=== PATIENT | male | born 1990 | race African-American/Black ===

== ENCOUNTER 2018-07-22 01:02 | Emergency (ER) | payer SELFPAY ==
[2018-07-22] MEDS ORDERED: KETOROLAC 30 MG/ML INJ ONE (01:54)
[2018-07-22 02:06] LABS: Absolute Lymphocytes (CBC) 2.2 K/uL (0.7-4.9); Absolute Monocytes 0.5 K/uL (0.1-1.3); Absolute Neutrophil 1.9 K/uL (1.8-8.0); Basophils % 0.9 % (0-1.3); Eosinophils % 7.6 % (0-4.4); Lymphocytes % 43.7 % (15.3-44.8); MPV 8.4 fL (7.6-11.3); Monocytes % 10.4 % (3.3-12.3); RBC Red Blood Cell Count 5.28 M/uL (4.33-5.43)
[2018-07-22 02:27] LABS: ALT/SGPT 33 U/L (12-78); AST/SGOT 22 U/L (15-37); Albumin 4.5 g/dL (3.4-5.0); Alkaline Phosphatase 72 U/L (45-117); BUN Blood Urea Nitrogen 10 mg/dL (7-18); Bicarbonate 24 mmol/L (21-32); Bilirubin Direct 0.1 mg/dL (0-0.2); Bilirubin Total 0.4 mg/dL (0.2-1.0); Glucose Level 101 mg/dL (74-106); Magnesium 2.1 mg/dL (1.8-2.4); Potassium 4.1 mmol/L (3.5-5.1); Protein, Total 8.1 g/dL (6.4-8.2); Sodium Level 140 mmol/L (136-145); Troponin I < 0.02 ng/mL (0.0-0.045)
[2018-07-22 02:50] LABS: NT PRO-BNP < 5 pg/mL (<125)
--- NOTE | 2018-07-22 03:06 | EDPHYS ---
Physician Documentation [facility] Name: Paul Giles Jr Age: 28 yrs Sex: Male : 1990 Arrival Date: 07/22/2018 Time: 01:05 Bed 5 Private MD: ED Physician Cordell Robbins HPI: 07/22 01:26 This 28 yrs old Black Male presents to ER via Ambulatory with complaints of chest pain. cp 01:26 The patient or guardian reports chest pain that is located primarily in the anterior cp chest wall, left, left lower lateral chest. 01:26 Associated signs and symptoms: Pertinent positives: cough. Duration: The patient or cp guardian reports a single episode, that is still ongoing, and worsening. Modifying factors: the symptoms are aggravated by cough, deep breath. Historical: - Allergies: 01:22 mosquitoes; bb - Home Meds: 01:22 Albuterol Inhl [Active]; bb - PMHx: 01:22 Asthma; bb - PSHx: 01:22 None; bb - Immunization history:: Adult Immunizations up to date. - Social history:: Smoking status: Patient uses tobacco products, smokes one pack cigarettes per day. Patient uses alcohol, on a daily basis. street drugs, marijuana. - Ebola Screening: : No symptoms or risks identified at this time. ROS: 01:30 Constitutional: Negative for body aches, chills, fever, poor PO intake. cp 01:30 Eyes: Negative for injury, pain, redness, and discharge. cp 01:30 Cardiovascular: Positive for chest pain, of the left lower lateral and anterior rib cp area, Negative for edema, palpitations. 01:30 Neck: Negative for pain with movement, pain at rest, stiffness, tenderness. cp 01:30 Respiratory: Positive for cough, Negative for shortness of breath, wheezing. 01:30 Abdomen/GI: Negative for abdominal pain, nausea, vomiting, and diarrhea. 01:30 Back: Negative for pain at rest, pain with movement, radiated pain. 01:30 : Negative for urinary symptoms. 01:30 Skin: Negative for cellulitis, rash. 01:30 Neuro: Negative for altered mental status, dizziness, headache, syncope, near syncope, weakness. 01:30 All other systems are negative. Exam: 01:35 Constitutional: The patient appears in no acute distress, alert, awake, cp non-diaphoretic, non-toxic, well developed, well nourished, uncomfortable. 01:35 Head/Face: Normocephalic, atraumatic. cp 01:35 Eyes: Periorbital structures: appear normal, Pupils: equal, round, and reactive to cp light and accomodation, Extraocular movements: intact throughout, Conjunctiva: normal, no exudate, no injection, Sclera: no appreciated abnormality, Lids and lashes: appear normal, bilaterally. 01:35 ENT: External ear(s): are unremarkable, Ear canal(s): are normal, clear, TM's: bulging, is not appreciated, bilaterally, dullness, bilaterally, erythema, is not appreciated, bilaterally, Nose: is normal, Mouth: Lips: moist, Oral mucosa: pink and intact, moist, Posterior pharynx: Airway: no evidence of obstruction, patent, Tonsils: are normal in appearance, swelling, is not appreciated, erythema, is not appreciated, exudate, is not appreciated, Voice: is normal. 01:35 Neck: ROM/movement: is normal, is supple, without pain, no range of motions limitations, no nuchal rigidity. 01:35 Chest/axilla: Inspection: normal, Palpation: crepitus, is not appreciated, tenderness, cp that is moderate, of the left lower lateral and anterior rib area, that partially reproduces the patient's complaints. 01:35 Cardiovascular: Rate: normal, Rhythm: regular, Pulses: Pulses are 2+ in right radial artery and left radial artery. Heart sounds: murmur, not appreciated, Edema: is not appreciated, JVD: is not appreciated. 01:35 Respiratory: the patient does not display signs of respiratory distress, Respirations: normal, no use of accessory muscles, no retractions, no splinting, no tachypnea, labored breathing, is not present, Breath sounds: are clear throughout, no decreased breath sounds, no stridor, no wheezing, decreased breath sounds, are not appreciated, stridor, is not appreciated, wheezing: is not appreciated. 01:35 Abdomen/GI: Inspection: abdomen appears normal, Bowel sounds: active, all quadrants, Palpation: abdomen is soft and non-tender, in all quadrants, rebound tenderness, is not appreciated, voluntary guarding, is not appreciated, involuntary guarding, is not appreciated. 01:35 Back: pain, is absent, ROM is normal, CVA tenderness, is absent, muscle spasm, is not present. 01:35 Musculoskeletal/extremity: Exam is negative for decreased range of motion, deformity, edema, injury. 01:35 Skin: cellulitis, is not appreciated, no rash present. 01:35 Neuro: Orientation: to person, place \T\ time. Mentation: is normal, Cerebellar function: is grossly normal, Motor: moves all fours, strength is normal, Sensation: is normal, Gait: is steady. 01:39 ECG was reviewed by the Attending Physician. cp Vital Signs: 01:22 BP 125 / 85; Pulse 99; Resp 16 S; Temp 99(O); Pulse Ox 97% on R/A; Weight 97.52 kg (R); bb Height 6 ft. 1 in. (185.42 cm) (R); Pain 7/10; 02:46 Pulse 100; Resp 19 S; Pulse Ox 98% on R/A; jd3 03:19 BP 116 / 91; Pulse 82; Resp 18 S; Pulse Ox 96% on R/A; jd3 01:22 Body Mass Index 28.37 (97.52 kg, 185.42 cm) bb MDM: 01:09 Patient medically screened. cp 02:00 Differential diagnosis: abnormal EKG, acute pericarditis, chest wall pain, cp cholecystitis, Cholelithiasis costochondritis, pericarditis, pneumonia, pneumothorax, pulmonary embolus. 03:05 Data reviewed: vital signs, nurses notes, lab test result(s), EKG, radiologic studies, cp plain films. 03:05 Test interpretation: by ED physician or midlevel provider: ECG, plain radiologic cp studies. 03:05 Response to treatment: the patient's symptoms have mildly improved after treatment. cp 03:05 Counseling: I had a detailed discussion with the patient and/or guardian regarding: the cp historical points, exam findings, and any diagnostic results supporting the discharge/admit diagnosis, lab results, radiology results, to return to the emergency department if symptoms worsen or persist or if there are any questions or concerns that arise at home. Special discussion: Based on the patient's history, exam, and Dx evaluation, there is no indication for emergent intervention or inpatient Tx. It is understood by the patient/guardian that if the Sx's persist or worsen they need to return immediately for re-evaluation. 02 02:02 Order name: Basic Metabolic Panel; Complete Time: 02:54 EDMS 02 02:54 Interpretation: Normal except: CL 108. cp 07/22 02:02 Order name: Liver (Hepatic) Function; Complete Time: 02:54 EDMS 02 02:54 Interpretation: Normal except: GLOB 3.6. cp 07/22 02:03 Order name: Troponin I; Complete Time: 02:54 EDMS 07/22 02:54 Interpretation: Reviewed. cp 02 02:03 Order name: NT PRO-BNP; Complete Time: 02:54 EDMS 07/22 02:03 Order name: Magnesium; Complete Time: 02:54 EDMS 07/22 01:26 Order name: EKG; Complete Time: 07:04 cp 07/22 01:26 Order name: Cardiac monitoring; Complete Time: 01:41 cp 07/22 01:26 Order name: EKG - Nurse/Tech; Complete Time: 01:41 cp 07/22 01:26 Order name: IV Saline Lock; Complete Time: 01:56 cp 07/22 01:26 Order name: Labs collected and sent; Complete Time: 01:56 cp 07/22 01:26 Order name: O2 Per Protocol; Complete Time: 01:27 cp 07/22 01:31 Order name: Chest Pa And Lat (2 Views) EDMS 07/22 02:03 Order name: CBC with Automated Diff EDMS 07/22 03:03 Interpretation: Normal except: SRIKANTH% 37.4; EOSINOPHIL % 7.6. cp 07/22 02:03 Order name: Protime (+INR); Complete Time: 02:54 EDMS 07/22 02:03 Order name: Influenza Screen (A ; Complete Time: 02:54 EDMS 07/22 02:54 Interpretation: Reviewed. cp 07/22 02:03 Order name: Group A Streptococcus Rapid Sc; Complete Time: 02:54 EDMS 07/22 02:54 Interpretation: Reviewed. cp 07/22 02:12 Order name: Manual Differential EDMS 07/22 02:46 Order name: Throat Culture EDMS 07/22 01:26 Order name: O2 Sat Monitoring; Complete Time: 01:27 cp EC:39 Rate is 90 beats/min. Rhythm is regular. WV interval is normal. QRS interval is normal. cp QT interval is normal. T waves are Inverted in leads III, V2. Interpreted by me. Reviewed by me. Administered Medications: 01:56 Drug: TORadol 30 mg Route: IVP; Site: right antecubital; jd3 03:20 Follow up: Response: No adverse reaction jd3 03:17 Drug: Hydrocodone-Acetaminophen (7.5 mg-325 mg) 1 tabs Route: PO; jd3 03:18 Follow up: Response: Medication administered at discharge. jd3 Disposition: 06:33 Co-signature as Attending Physician, Cordell Robbins MD. rn Disposition: 07/22/18 03:06 Discharged to Home. Impression: Acute upper respiratory infection, unspecified, Other chest pain. - Condition is Stable. - Discharge Instructions: Nonspecific Chest Pain, Upper Respiratory Infection, Adult. - Prescriptions for Naprosyn 500 mg Oral Tablet - take 1 tablet by ORAL route 2 times per day take with food; 20 tablet. Tramadol 50 mg Oral Tablet - take 1 tablet by ORAL route every 8 hours as needed; 12 tablet. Zithromax Z- Ok 250 mg Oral Tablet - take 1 tablet by ORAL route as directed for 5 days Day 1 - take two (2) tablets one time. Day 2, 3, 4 , 5 take one (1) tablet once daily.; 6 tablet. Albuterol Sulfate 90 mcg/actuation - inhale 1-2 puff by INHALATION route every 4-6 hours; 1 Inhaler. - Medication Reconciliation Form, Thank You Letter, Antibiotic Education, Prescription Opioid Use form. - Follow up: Private Physician; When: 2 - 3 days; Reason: Worsening of condition. - Problem is new. - Symptoms have improved. Signatures: Dispatcher [employer] Aimee Holloway RN RN Cordell Park MD MD rn Page, Corey, PA PA cp Davies, Jonathon, RN RN jd3 Corrections: (The following items were deleted from the chart) 03:20 03:06 07/22/2018 03:06 Discharged to Home. Impression: Acute upper respiratory jd3 infection, unspecified; Other chest pain. Condition is Stable. Forms are Medication Reconciliation Form, Thank You Letter, Antibiotic Education, Prescription Opioid Use. Follow up: Private Physician; When: 2 - 3 days; Reason: Worsening of condition. Problem is new. Symptoms have improved. cp
--- NOTE | 2018-07-22 03:06 | ER ---
Nurse's Notes [facility] Name: Paul Giles Jr Age: 28 yrs Sex: Male : 1990 Arrival Date: 07/22/2018 Time: 01:05 Bed 5 Private MD: Diagnosis: Acute upper respiratory infection, unspecified;Other chest pain Presentation: 07/22 01:20 Presenting complaint: Patient states: he is having a left upper quadrant pain x 5 days bb pain was constant for the first couple of days then decreased but now has worsened again and is constant aggravated by coughing pt denies diarrhea, fever, vomited x 1 4 days ago. Pt is unable to lay down due to the pain. Transition of care: patient was not received from another setting of care. Onset of symptoms was July 17, 2018. Risk Assessment: Do you want to hurt yourself or someone else? Patient reports no desire to harm self or others. Initial Sepsis Screen: Does the patient meet any 2 criteria? No. Patient's initial sepsis screen is negative. Does the patient have a suspected source of infection? No. Patient's initial sepsis screen is negative. Care prior to arrival: None. 01:20 Method Of Arrival: Ambulatory bb 01:20 Acuity: DOMONIQUE 3 bb Historical: - Allergies: 01:22 mosquitoes; bb - Home Meds: 01:22 Albuterol Inhl [Active]; bb - PMHx: 01:22 Asthma; bb - PSHx: 01:22 None; bb - Immunization history:: Adult Immunizations up to date. - Social history:: Smoking status: Patient uses tobacco products, smokes one pack cigarettes per day. Patient uses alcohol, on a daily basis. street drugs, marijuana. - Ebola Screening: : No symptoms or risks identified at this time. Screenin:23 Abuse screen: Denies threats or abuse. Nutritional screening: No deficits noted. jd3 Tuberculosis screening: No symptoms or risk factors identified. Fall Risk Ambulatory Aid- None/Bed Rest/Nurse Assist (0 pts). Gait- Normal/Bed Rest/Wheelchair (0 pts) Mental Status- Oriented to own ability (0 pts). Total Sheehan Fall Scale indicates No Risk (0-24 pts). Assessment: 01:20 General: Appears in no apparent distress. uncomfortable, Behavior is calm, cooperative, jd3 appropriate for age. Pain: Complains of pain in chest Quality of pain is described as aching. Neuro: Level of Consciousness is awake, alert, obeys commands, Oriented to person, place, time, situation, Appropriate for age. Cardiovascular: Heart tones S1 S2 present Capillary refill < 3 seconds Patient's skin is warm and dry. Respiratory: Airway is patent Respiratory effort is even, unlabored, Respiratory pattern is regular, symmetrical, Breath sounds with wheezes bilaterally. GI: No signs and/or symptoms were reported involving the gastrointestinal system. : No signs and/or symptoms were reported regarding the genitourinary system. EENT: No signs and/or symptoms were reported regarding the EENT system. Derm: Skin is intact, Skin is dry, Skin is normal, Skin temperature is warm. Musculoskeletal: Circulation, motion, and sensation intact. Range of motion: intact in all extremities. 02:46 Reassessment: Patient appears in no apparent distress at this time. Patient and/or jd3 family updated on plan of care and expected duration. Pain level reassessed. Patient is alert, oriented x 3, equal unlabored respirations, skin warm/dry/pink. 03:19 Reassessment: Patient appears in no apparent distress at this time. Patient and/or jd3 family updated on plan of care and expected duration. Pain level reassessed. Patient is alert, oriented x 3, equal unlabored respirations, skin warm/dry/pink. Vital Signs: 01:22 BP 125 / 85; Pulse 99; Resp 16 S; Temp 99(O); Pulse Ox 97% on R/A; Weight 97.52 kg (R); bb Height 6 ft. 1 in. (185.42 cm) (R); Pain 7/10; 02:46 Pulse 100; Resp 19 S; Pulse Ox 98% on R/A; jd3 03:19 BP 116 / 91; Pulse 82; Resp 18 S; Pulse Ox 96% on R/A; jd3 01:22 Body Mass Index 28.37 (97.52 kg, 185.42 cm) ED Course: 01:05 Patient arrived in ED. ag3 01:06 Theodore Torres PA is PHCP. cp 01:06 Cordell Robbins MD is Attending Physician. cp 01:20 Beto Naqvi RN is Primary Nurse. jd3 01:22 Triage completed. bb 01:22 Patient has correct armband on for positive identification. Bed in low position. Call jd3 light in reach. Side rails up X 1. Adult w/ patient. 01:22 Arm band placed on. jd3 01:40 Inserted saline lock: 20 gauge in right antecubital area, using aseptic technique. jd3 Blood collected. 01:42 Patient moved to radiology via wheelchair. kw 01:43 X-ray completed. Patient tolerated procedure well. kw 01:43 Patient moved back from radiology. kw 01:46 Chest Pa And Lat (2 Views) In Process Unspecified. EDMS 03:17 No provider procedures requiring assistance completed. IV discontinued, intact, jd3 bleeding controlled, No redness/swelling at site. Pressure dressing applied. Administered Medications: 01:56 Drug: TORadol 30 mg Route: IVP; Site: right antecubital; jd3 03:20 Follow up: Response: No adverse reaction jd3 03:17 Drug: Hydrocodone-Acetaminophen (7.5 mg-325 mg) 1 tabs Route: PO; jd3 03:18 Follow up: Response: Medication administered at discharge. jd3 Outcome: 03:06 Discharge ordered by . cp 03:18 Discharged to home ambulatory, with family. jd3 03:18 Condition: stable 03:18 Discharge instructions given to patient, family, Instructed on discharge instructions, follow up and referral plans. medication usage, Demonstrated understanding of instructions, follow-up care, medications, Prescriptions given X 4. 03:20 Patient left the ED. jd3 Signatures: Dispatcher [employer] EDMS Aimee Díaz RN RN bb Whitley, Kimberlee kw Page, Corey, PA PA cp Davies, Jonathon RN RN Celine Meier ag3
[2018-07-22] MEDS ORDERED: HYDROCODONE/APAP 7.5/325 MG TAB ONE (03:19)
[2018-07-22 03:32] VITALS: TEMP 99
[2018-07-22 03:33] LABS: Blood Morphology Comment NOT SEEN (NOT SEEN); Platelet Estimate ADEQ
[2018-07-22 03:34] VITALS: BP 116/91; O2SAT 96
--- NOTE | 2018-07-22 08:18 | RAD REPORT ---
EXAM DESCRIPTION: RAD - Chest Pa And Lat (2 Views) - 07/22/2018 1:45 am CLINICAL HISTORY: COUGH, CHEST PAIN Chest pain. COMPARISON: Chest Pa And Lat (2 Views) dated 06/15/2017 FINDINGS: The lungs are clear. The heart is normal in size. No displaced fractures. IMPRESSION: No acute or concerning finding suspected.
--- NOTE | 2018-07-22 08:43 | EKG ---
Test Date: 2018-07-22 Test Time: 01:32:58 Head Bone Grinder: [place] MEASUREMENT RESULTS: Intervals: Rate: 90 CO: 152 QRSD: 96 QT: 358 QTc: 437 Knobel: P: 55 CO: 152 QRS: 83 T: 22 INTERPRETIVE STATEMENTS: Normal sinus rhythm Septal infarct, age undetermined Abnormal ECG Compared to ECG 07/03/2012 10:33:23 Myocardial infarct finding now present Electronically Signed On 07-22-18 08:43:16 RESIDENTIAL APPLIANCE REPAIR TECHNICIAN by Serafin Lainez
== END 2018-07-22 03:20 | disposition home or self-care (01) ==
LOC: ER 01:02
DX: J06.9 Acute upper respiratory infection, unspecified (principal); F17.210 Nicotine dependence, cigarettes, uncomplicated; J45.909 Unspecified asthma, uncomplicated; Z91.038 Other insect allergy status
CPT/HCPCS: 36415; 71046; 80048; 80076; 83735; 83880; 84484; 85025; 85610; 87070; 87081; 87804; 93005; 96374; 99284

== ENCOUNTER 2019-03-14 06:04 | Emergency (ER) | payer SELFPAY ==
[2019-03-14] MEDS ORDERED: LEVALBUTEROL 1.25 MG/3 ML NEB ONE (06:36)
[2019-03-14] MEDS ORDERED: METHYLPREDNISOLONE 125 MG INJ ONE (06:36)
[2019-03-14 07:38] LABS: Absolute Lymphocytes (CBC) 1.1 K/uL (0.7-4.9); Basophils % 0.4 % (0-1.3); Hematocrit 41.8 % (39.6-49.0); Lymphocytes % 13.8 % (15.3-44.8); MPV 8.9 fL (7.6-11.3); RBC Red Blood Cell Count 4.56 M/uL (4.33-5.43)
[2019-03-14 07:39] LABS: Protime INR 0.94
[2019-03-14 07:44] LABS: ALT/SGPT 44 U/L (12-78); AST/SGOT 27 U/L (15-37); Albumin 4.2 g/dL (3.4-5.0); Alkaline Phosphatase 70 U/L (45-117); BUN Blood Urea Nitrogen 9 mg/dL (7-18); Bicarbonate 25 mmol/L (21-32); Bilirubin Direct 0.2 mg/dL (0-0.2); Bilirubin Total 0.7 mg/dL (0.2-1.0); Glucose Level 105 mg/dL (74-106); Magnesium 1.9 mg/dL (1.8-2.4); NT PRO-BNP 17 pg/mL (<125); Potassium 4.2 mmol/L (3.5-5.1); Protein, Total 7.7 g/dL (6.4-8.2); Sodium Level 137 mmol/L (136-145); Troponin (Emerg Dept Use Only) < 0.02 ng/mL (0.0-0.045)
--- NOTE | 2019-03-14 08:34 | RAD REPORT ---
EXAM DESCRIPTION: RAD - Chest Single View - 03/14/2019 6:55 am CLINICAL HISTORY: Substernal chest pain COMPARISON: July 22 TECHNIQUE: AP portable chest image was obtained . FINDINGS: Lungs are clear. Heart and vasculature are normal. No measurable pleural effusion and no p neumothorax. No acute bony abnormality seen. No acute aortic findings suspected. IMPRESSION: No acute cardiopulmonary process.
[2019-03-14] MEDS ORDERED: KETOROLAC 30 MG/ML INJ ONE (09:45)
--- NOTE | 2019-03-14 10:34 | ECHO ---
HEIGHT: 6 ft 0 in WEIGHT: 190 lb oz DATE OF STUDY: 03/14/[address]: ALBERTA LANDRY 2-DIMENSIONAL: YES M.MODE: YES DOPPLER: YES COLOR FLOW: YES TDS: NO PORTABLE: NO DEFINITY: NO BUBBLE STUDY: NO DIAGNOSIS: PERICARDITIS, CHEST PAIN CARDIAC HISTORY: CATHERIZATION: NO SURGERY: NO PROSTHETIC VALVE: NO PACEMAKER: NO MEASUREMENTS (cm) DIASTOLIC (NORMALS) SYSTOLIC (NORMALS) IVSd 1.0 (0.6-1.2) LA Diam 3.2 (1.9-4.0) LVEF 80% LVIDd 3.7 (3.5-5.7) LVIDs 2.0 (2.0-3.5) %FS 47% LVPWd 1.0 (0.6-1.2) Ao Diam 3.5 (2.0-3.7) 2 DIMENSIONAL ASSESSMENT: RIGHT ATRIUM: NORMAL LEFT ATRIUM: NORMAL RIGHT VENTRICLE: NORMAL LEFT VENTRICLE: NORMAL TRICUSPID VALVE: NORMAL MITRAL VALVE: NORMAL PULMONIC VALVE: NORMAL AORTIC VALVE: NORMAL PERICARDIAL EFFUSION: NONE AORTIC ROOT: NORMAL LEFT VENTRICULAR WALL MOTION: NORMAL DOPPLER/COLOR FLOW: NORMAL COMMENTS: NORMAL 2D ECHOCARDIOGRAM WITH DOPPLER. TECHNOLOGIST: Manjula REINOSO
--- NOTE | 2019-03-14 10:38 | ER ---
Nurse's Notes [facility] Name: Paul Giles Jr Age: 28 yrs Sex: Male : 1990 Arrival Date: 03/14/2019 Time: 06:05 Bed 13 Private MD: Diagnosis: Chest pain, unspecified;Pericarditis in diseases classified elsewhere Presentation: 03/14 06:25 Presenting complaint: Patient states: "Chest pain since 0H last night while I was cc3 smoking a cigarette. At 0200H I felt difficulty breathing and pain in the epigastric area that radiates to back and right shoulder". Transition of care: patient was not received from another setting of care. Onset of symptoms was March 13, 2019. Risk Assessment: Do you want to hurt yourself or someone else? Patient reports no desire to harm self or others. Initial Sepsis Screen: Does the patient meet any 2 criteria? No. Patient's initial sepsis screen is negative. Does the patient have a suspected source of infection? No. Patient's initial sepsis screen is negative. Care prior to arrival: None. 06:25 Method Of Arrival: Ambulatory cc3 06:25 Acuity: DOMONIQUE 3 cc3 Triage Assessment: 06:25 General: Appears in no apparent distress. uncomfortable, Behavior is calm, cooperative, cc3 appropriate for age. Pain: Complains of pain in chest, epigastric area. Cardiovascular: Reports chest pain, since 2130H last night. Historical: - Allergies: 06:25 mosquitoes; cc3 - Home Meds: 06:25 Albuterol Inhl [Active]; cc3 - PMHx: 06:25 Asthma; cc3 - Immunization history:: Adult Immunizations not up to date. - Social history:: Smoking status: Patient uses tobacco products, smokes one pack cigarettes per day. - Ebola Screening: : No symptoms or risks identified at this time. Screenin:25 Abuse screen: Denies threats or abuse. Denies injuries from another. Nutritional cc3 screening: No deficits noted. Tuberculosis screening: No symptoms or risk factors identified. Fall Risk Ambulatory Aid- None/Bed Rest/Nurse Assist (0 pts). Gait- Normal/Bed Rest/Wheelchair (0 pts) Mental Status- Oriented to own ability (0 pts). Assessment: 06:25 Pain: Complains of pain in chest, epigastric area Pain radiates to back and right cc3 shoulder Pain currently is 9 out of 10 on a pain scale. Quality of pain is described as aching, Pain began 2130H last night. 07:40 Reassessment: Patient appears in no apparent distress at this time. Patient and/or sv family updated on plan of care and expected duration. Pain level reassessed. Patient is alert, oriented x 3, equal unlabored respirations, skin warm/dry/pink. Pt reports that his pain is better when he leans forward. Patient states symptoms have improved. 08:17 Reassessment: Echo at the bedside. sv 09:48 Reassessment: Patient appears in no apparent distress at this time. Patient and/or sv family updated on plan of care and expected duration. Pain level reassessed. Patient is alert, oriented x 3, equal unlabored respirations, skin warm/dry/pink. Patient states symptoms have improved. 10:27 Reassessment: Patient appears in no apparent distress at this time. Patient and/or sv family updated on plan of care and expected duration. Pain level reassessed. Patient is alert, oriented x 3, equal unlabored respirations, skin warm/dry/pink. Pt waiting on Echo results. Vital Signs: 06:25 BP 126 / 91; Pulse 84; Resp 20 S; Temp 98.8(O); Pulse Ox 97% on R/A; Weight 86.18 kg cc3 (R); Height 6 ft. 0 in. (182.88 cm) (R); Pain 9/10; 07:33 BP 137 / 87; Pulse 81; Resp 22; Pulse Ox 96% ; sv 08:20 BP 133 / 93; Pulse 93; Resp 20; Pulse Ox 96% ; sv 09:11 BP 125 / 98; Pulse 69; Resp 18; Pulse Ox 95% on R/A; sv 10:13 BP 111 / 67; Pulse 83; Resp 18; Pulse Ox 95% ; sv 06:25 Body Mass Index 25.77 (86.18 kg, 182.88 cm) [facility] ED Course: 06:05 Patient arrived in ED. ag3 06:09 Jayme Patel PA is PHCP. [facility] 06:09 Alex Mulligan MD is Attending Physician. [facility] 06:25 Arm band placed on right wrist. EKG completed in triage. Results shown to MD. cc3 06:25 Patient has correct armband on for positive identification. Placed in gown. Bed in low cc3 position. Call light in reach. Side rails up X2. compliance monitor on. Pulse ox on. NIBP on. 06:25 Patient maintains SpO2 saturation greater than 95% on room air. cc3 06:56 XRAY Chest (1 view) In Process Unspecified. EDMS 06:56 Triage completed. cc3 06:58 Pily Marques RN is Primary Nurse. sv 06:59 Report received from Ilene HINES. sv 06:59 Report given to DONNY Nascimento. cc3 07:16 Basic Metabolic Panel Sent. sv 07:17 CBC with Diff Sent. sv 09:12 Awaiting radiology results. sv 09:12 Echo w/ Doppler Sent. sv 10:50 No provider procedures requiring assistance completed. IV discontinued, intact, sv bleeding controlled, No redness/swelling at site. Pressure dressing applied. Administered Medications: 06:42 Drug: Xopenex (3) 1.25 mg Route: Inhalation; cc3 07:16 Drug: SOLU-Medrol 125 mg Route: IVP; Site: right antecubital; sv 07:41 Follow up: Response: No adverse reaction sv 09:48 Drug: Ketorolac 30 mg Route: IVP; Site: right antecubital; sv 10:50 Follow up: Response: No adverse reaction sv Outcome: 10:36 Discharge ordered by MD. jennyfer 10:50 Discharged to home ambulatory, with family. sv 10:50 Condition: stable 10:50 Condition: improved 10:50 Discharge instructions given to patient, Instructed on discharge instructions, follow up and referral plans. medication usage, Demonstrated understanding of instructions, follow-up care, medications, Prescriptions given X 1. 10:51 Patient left the ED. sv Signatures: Dispatcher [employer] EDMS Pily Marques RN RN sv Mickail, Joel, PA PA jmm Cordel, Charlene cc3 Celine Mosqueda ag3 Corrections: (The following items were deleted from the chart) 07:34 07:33 BP 137 / 87; Pulse 81bpm; Pulse Ox 94%; sv sv 07:37 07:33 BP 137 / 87; Pulse 81bpm; Pulse Ox 96%; sv sv
--- NOTE | 2019-03-14 10:38 | EDPHYS ---
Physician Documentation [facility] Name: Paul Giles Jr Age: 28 yrs Sex: Male : 1990 Arrival Date: 03/14/2019 Time: 06:05 Bed 13 Private MD: ED Physician Alex Mulligan HPI: 03/14 06:22 This 28 yrs old Black Male presents to ER via Unassigned with complaints of Chest Pain. [facility] 06:22 The patient or guardian reports chest pain that is located primarily in the substernal [facility] area. The pain does not radiate. Associated signs and symptoms: Pertinent positives: shortness of breath. The chest pain is described as sharp. Duration: The patient or guardian reports a single episode, that is still ongoing, and unchanged. Modifying factors: The symptoms are alleviated by nothing. the symptoms are aggravated by deep breath. The patient has not experienced similar symptoms in the past. This is a 28 year old male with a history of asthma that presents to the ED with complaints of chest pain beginning last night at 9 pm. Worsened with deep breath. Admits to tobacco use. . Historical: - Allergies: 06:25 mosquitoes; cc3 - Home Meds: 06:25 Albuterol Inhl [Active]; cc3 - PMHx: 06:25 Asthma; cc3 - Immunization history:: Adult Immunizations not up to date. - Social history:: Smoking status: Patient uses tobacco products, smokes one pack cigarettes per day. - Ebola Screening: : No symptoms or risks identified at this time. ROS: 06:22 Constitutional: Negative for fever, chills, and weight loss. jmm 06:22 Abdomen/GI: Negative for abdominal pain, nausea, vomiting, diarrhea, and constipation. 06:22 Cardiovascular: Positive for chest pain. 06:22 Respiratory: Positive for shortness of breath. 06:22 All other systems are negative. Exam: 06:22 Constitutional: This is a well developed, well nourished patient who is awake, alert, jmm and in no acute distress. Head/Face: atraumatic. Eyes: EOMI, no conjunctival erythema appreciated ENT: Moist Mucus Membranes Neck: Trachea midline, Supple Chest/axilla: Normal chest wall appearance and motion. 06:22 Cardiovascular: Rate: normal, Rhythm: regular. 06:22 Respiratory: the patient does not display signs of respiratory distress, Respirations: normal, Breath sounds: wheezing: that is mild, is heard in the left upper lobe. 06:22 Back: ROM is normal. 06:22 Musculoskeletal/extremity: ROM: intact in all extremities. 06:22 Skin: Appearance: Color: normal in color. 06:22 Neuro: Orientation: is normal, Mentation: is normal, Memory: is normal. 06:22 Psych: Behavior/mood is pleasant, cooperative. Vital Signs: 06:25 BP 126 / 91; Pulse 84; Resp 20 S; Temp 98.8(O); Pulse Ox 97% on R/A; Weight 86.18 kg cc3 (R); Height 6 ft. 0 in. (182.88 cm) (R); Pain 9/10; 07:33 BP 137 / 87; Pulse 81; Resp 22; Pulse Ox 96% ; sv 08:20 BP 133 / 93; Pulse 93; Resp 20; Pulse Ox 96% ; sv 09:11 BP 125 / 98; Pulse 69; Resp 18; Pulse Ox 95% on R/A; sv 10:13 BP 111 / 67; Pulse 83; Resp 18; Pulse Ox 95% ; sv 06:25 Body Mass Index 25.77 (86.18 kg, 182.88 cm) cc3 MDM: 06:17 Patient medically screened. [facility] 10:34 Data reviewed: vital signs, nurses notes, lab test result(s), EKG, radiologic studies, [facility] plain films, ultrasound. Counseling: I had a detailed discussion with the patient and/or guardian regarding: the historical points, exam findings, and any diagnostic results supporting the discharge/admit diagnosis, lab results, radiology results, the need for outpatient follow up, to return to the emergency department if symptoms worsen or persist or if there are any questions or concerns that arise at home. ED course: No effusion on 2d echo. Patient recently had a viral illness. This may have caused pericarditis. Patient is advised to follow up with cardio for reevaluation. Patient was otherwise given strict return precautions. Patient understood and agrees with the plan of care. . 03/14 06:28 Order name: Basic Metabolic Panel [facility] 03/14 06:28 Order name: CBC with Diff [facility] 03/14 06:28 Order name: LFT's; Complete Time: 07:48 [facility] 03/14 06:28 Order name: Magnesium; Complete Time: 07:48 [facility] 03/14 06:28 Order name: NT PRO-BNP; Complete Time: 07:48 [facility] 03/14 06:28 Order name: PT-INR; Complete Time: 08:09 [facility] 03/14 06:28 Order name: Troponin (emerg Dept Use Only); Complete Time: 07:48 [facility] 03/14 06:28 Order name: XRAY Chest (1 view); Complete Time: 08:51 [facility] 03/14 06:28 Order name: Basic Metabolic Panel; Complete Time: 07:48 EDMS 03/14 06:28 Order name: CBC with Automated Diff; Complete Time: 07:48 EDMS 03/14 06:31 Order name: D-Dimer; Complete Time: 08:09 [facility] 03/14 07:39 Order name: Echo w/ Doppler [facility] 03/14 06:28 Order name: EKG; Complete Time: 06:29 [facility] 03/14 06:28 Order name: Cardiac monitoring; Complete Time: 06:34 [facility] 03/14 06:28 Order name: EKG - Nurse/Tech; Complete Time: 06:58 [facility] 03/14 06:28 Order name: IV Saline Lock; Complete Time: 07:16 [facility] 03/14 06:28 Order name: Labs collected and sent; Complete Time: 07:16 [facility] 03/14 06:28 Order name: O2 Per Protocol; Complete Time: 06:34 [facility] 03/14 06:28 Order name: O2 Sat Monitoring; Complete Time: 06:34 jmm Administered Medications: 06:42 Drug: Xopenex (3) 1.25 mg Route: Inhalation; cc3 07:16 Drug: SOLU-Medrol 125 mg Route: IVP; Site: right antecubital; sv 07:41 Follow up: Response: No adverse reaction sv 09:48 Drug: Ketorolac 30 mg Route: IVP; Site: right antecubital; sv 10:50 Follow up: Response: No adverse reaction sv Disposition: 03/14/19 10:36 Discharged to Home. Impression: Chest pain, unspecified, Pericarditis in diseases classified elsewhere. - Condition is Stable. - Discharge Instructions: Nonspecific Chest Pain, Pericarditis. - Prescriptions for Ibuprofen 800 mg Oral Tablet - take 1 tablet by ORAL route every 8 hours As needed take with food; 30 tablet. - Medication Reconciliation Form, Thank You Letter, Antibiotic Education, Prescription Opioid Use form. - Follow up: Private Physician; When: 2 - 3 days; Reason: Recheck today's complaints, Continuance of care, Re-evaluation by your physician. Signatures: Dispatcher [employer] Pily Be RN RN Jayme Veliz PA PA jmm Cordel, Charlene cc3 Corrections: (The following items were deleted from the chart) 10:51 10:36 03/14/2019 10:36 Discharged to Home. Impression: Chest pain, unspecified; sv Pericarditis in diseases classified elsewhere. Condition is Stable. Forms are Medication Reconciliation Form, Thank You Letter, Antibiotic Education, Prescription Opioid Use. Follow up: Private Physician; When: 2 - 3 days; Reason: Recheck today's complaints, Continuance of care, Re-evaluation by your physician. jennyfer
[2019-03-14 11:07] VITALS: TEMP 98.8
[2019-03-14 11:10] VITALS: O2SAT 95
[2019-03-14 11:11] VITALS: BP 111/67
== END 2019-03-14 10:51 | disposition home or self-care (01) ==
LOC: ER 06:04
DX: I31.9 Disease of pericardium, unspecified (principal); J45.909 Unspecified asthma, uncomplicated; F17.210 Nicotine dependence, cigarettes, uncomplicated; Z91.038 Other insect allergy status
CPT/HCPCS: 36415; 71045; 80048; 80076; 83735; 83880; 84484; 85025; 85379; 85610; 93005; 93306; 96374; 96375; 99285; J2930

== ENCOUNTER 2020-01-27 18:41 | Inpatient (IN) | payer SELFPAY ==
[2020-01-27 19:43] LABS: Absolute Lymphocytes (CBC) 0.8 K/uL (0.7-4.9); Basophils % 0.5 % (0-1.3); Hematocrit 54.3 % (39.6-49.0); Lymphocytes % 9.1 % (15.3-44.8); MPV 8.9 fL (7.6-11.3); RBC Red Blood Cell Count 6.02 M/uL (4.33-5.43)
[2020-01-27] MEDS ORDERED: NA CHLORIDE 0.9% 1,000 ML ONE ×3 (19:45→22:38)
[2020-01-27] MEDS ORDERED: ONDANSETRON 4 MG/2 ML VIAL ONE (19:45)
[2020-01-27 20:31] LABS: Potassium 5.1 mmol/L (3.5-5.1)
--- NOTE | 2020-01-27 20:51 | EDPHYS ---
Physician Documentation [facility] Name: Paul Giles Jr Age: 29 yrs Sex: Male : 1990 Arrival Date: 01/27/2020 Time: 18:42 Bed 25 Private MD: ED Physician Juan Driver HPI: 01/26 21:52 This 29 yrs old Black Male presents to ER via Ambulatory with complaints of Leg Pain, kb Vomiting. 21:52 The patient presents to the emergency department with nausea, vomiting. Onset: The kb symptoms/episode began/occurred today. Possible causes: overheated. The symptoms are aggravated by nothing. The symptoms are alleviated by nothing. Associated signs and symptoms: Pertinent positives: nausea, vomiting, muscle cramps, Pertinent negatives: abdominal pain, anorexia, belching, constipation, diarrhea, dysuria, fever, flatulence, GI bleeding, hematuria. Severity of symptoms: At their worst the symptoms were moderate in the emergency department the symptoms are unchanged. The patient has not experienced similar symptoms in the past. The patient has not recently seen a physician. Pt reports he has been working in the heat the last few days and today he started having muscle cramps all over, nausea and vomiting. Unable to tolerate anything by mouth. Historical: - Allergies: 19:15 mosquitoes; ss - Home Meds: 19:15 Albuterol Inhl [Active]; vc - PMHx: 19:15 Asthma; ss - Immunization history:: Adult Immunizations up to date. - Social history:: Smoking status: Patient reports the use of cigarette tobacco products, smokes one pack cigarettes per day. ROS: 21:52 Constitutional: Negative for fever, chills, and weight loss, Cardiovascular: Negative kb for chest pain, palpitations, and edema, Respiratory: Negative for shortness of breath, cough, wheezing, and pleuritic chest pain, Back: Negative for injury and pain, MS/Extremity: Negative for injury and deformity, Skin: Negative for injury, rash, and discoloration, Neuro: Negative for headache, weakness, numbness, tingling, and seizure. 21:52 Abdomen/GI: Positive for nausea and vomiting, abdominal cramps, Negative for abdominal pain, diarrhea, constipation. Exam: 20:06 Constitutional: This is a well developed, well nourished patient who is awake, alert, kb and in no acute distress. Head/Face: Normocephalic, atraumatic. Chest/axilla: Normal chest wall appearance and motion. Nontender with no deformity. No lesions are appreciated. Cardiovascular: Regular rate and rhythm with a normal S1 and S2. No gallops, murmurs, or rubs. Normal PMI, no JVD. No pulse deficits. Respiratory: Lungs have equal breath sounds bilaterally, clear to auscultation and percussion. No rales, rhonchi or wheezes noted. No increased work of breathing, no retractions or nasal flaring. Abdomen/GI: Soft, non-tender, with normal bowel sounds. No distension or tympany. No guarding or rebound. No evidence of tenderness throughout. Back: No spinal tenderness. No costovertebral tenderness. Full range of motion. Skin: Warm, dry with normal turgor. Normal color with no rashes, no lesions, and no evidence of cellulitis. MS/ Extremity: Pulses equal, no cyanosis. Neurovascular intact. Full, normal range of motion. Neuro: Awake and alert, GCS 15, oriented to person, place, time, and situation. Cranial nerves II-XII grossly intact. Motor strength 5/5 in all extremities. Sensory grossly intact. Cerebellar exam normal. Normal gait. 20:06 ECG was reviewed by the Attending Physician. Vital Signs: 19:12 BP 106 / 74; Pulse 90; Resp 18; Temp 97.8; Pulse Ox 99% on R/A; Pain 10/10; ss 21:00 BP 126 / 68; Pulse 96; Resp 18; Pulse Ox 100% on R/A; vc MDM: 19:15 Patient medically screened. kb 20:56 Data reviewed: vital signs, nurses notes. Data interpreted: Pulse oximetry: on room air kb is 99 %. Interpretation: normal. Counseling: I had a detailed discussion with the patient and/or guardian regarding: the historical points, exam findings, and any diagnostic results supporting the discharge/admit diagnosis, lab results, the need for further work-up and treatment in the hospital. Physician consultation: Robin MYRICK was contacted at 20:45, regarding admission, to the medical/surgical unit. patient's condition, and will see patient in ED, shortly. 01/26 19:16 Order name: CBC with Diff; Complete Time: 19:59 kb 01/26 19:16 Order name: Basic Metabolic Panel; Complete Time: 20:37 kb 01/26 19:16 Order name: CPK; Complete Time: 20:37 kb 01/27 00:02 Order name: [facility] 01/27 01:02 Order name: SARS-COV-2 RT PCR; Complete Time: 01:35 EDMS 01/26 19:16 Order name: IV Start; Complete Time: 19:33 kb 01/26 19:16 Order name: EKG; Complete Time: 19:17 kb 01/26 19:16 Order name: EKG - Nurse/Tech; Complete Time: 19:41 kb EC:06 Rate is 75 beats/min. Rhythm is regular. QRS [place] is Normal. OR interval is normal at kb 142 msec. QRS interval is normal at 90 msec. QT interval is normal at 366 msec. Administered Medications: 19:40 Drug: NS 0.9% 1000 ml Route: IV; Rate: 1000 ml; Site: right antecubital; vc 20:40 Follow up: IV Status: Completed infusion; IV Intake: 1000ml vc 19:40 Drug: Zofran (Ondansetron) 4 mg Route: IVP; Site: right antecubital; vc 21:30 Follow up: Response: No adverse reaction; Nausea is decreased vc 20:53 Drug: NS 0.9% 1000 ml Route: IV; Rate: 1000 ml; Site: right antecubital; vc 22:00 Follow up: IV Status: Completed infusion; IV Intake: 1000ml vc Disposition: 01/27/20 20:50 Hospitalization ordered by Lloyd Robbins for Observation. Preliminary diagnosis are Dehydration, Acute kidney failure. - Bed requested for Telemetry/MedSurg (Inpatient). - Status is Observation. bb - Condition is Stable. - Problem is new. - Symptoms are unchanged. Addendum: 01/29/2020 08:49 Co-signature as Attending Physician, Juan Driver MD I agree with the assessment and k dr plan of care. Signatures: Dispatcher [employer] [facility] Kiah Ahn FNP-C FNP-Ckb Webb, Martha, RN RN mw Rittger, Kevin, MD MD kdr Ballard, Brenda, RN RN bb Smirch, Shelby, RN RN Roxann Perez RN RN vc Corrections: (The following items were deleted from the chart) 01/26 21:05 20:50 Hospitalization Ordered by Lloyd Robbins MD for Observation. Preliminary mw diagnosis is Dehydration; Acute kidney failure. Bed requested for Telemetry/MedSurg (observation). Status is Observation. Condition is Stable. Problem is new. Symptoms are unchanged. kb 01/27 02:40 01/26 21:05 01/27/2020 20:50 Hospitalization Ordered by Lloyd Robbins MD for mw Observation. Preliminary diagnosis is Dehydration; Acute kidney failure. Bed requested for [facility] ER HOLD. Status is Observation. Condition is Stable. Problem is new. Symptoms are unchanged. mw 01/27 02:45 02:40 01/27/2020 20:50 Hospitalization Ordered by Lloyd Robbins MD for Observation. mw Preliminary diagnosis is Dehydration; Acute kidney failure. Bed requested for Telemetry/MedSurg (Inpatient). Status is Observation. Condition is Stable. Problem is new. Symptoms are unchanged. mw 03:14 02:45 01/27/2020 20:50 Hospitalization Ordered by Lloyd Robbins MD for Observation. bb Preliminary diagnosis is Dehydration; Acute kidney failure. Bed requested for Telemetry/MedSurg (Inpatient). Status is Observation. Condition is Stable. Problem is new. Symptoms are unchanged. mw
--- NOTE | 2020-01-27 20:51 | ER ---
Nurse's Notes [facility] Name: Paul Giles Jr Age: 29 yrs Sex: Male : 1990 Arrival Date: 01/27/2020 Time: 18:42 Bed 25 Private MD: Diagnosis: Dehydration;Acute kidney failure Presentation: 01/26 19:12 Chief complaint: Patient states: Working outside all day and now has generalized body ss cramps. Coronavirus screen: Client denies travel out of the [place] in the last 14 days. Ebola Screen: Patient denies exposure to infectious person. Patient denies travel to an Ebola-affected area in the 21 days before illness onset. Initial Sepsis Screen: Does the patient have a suspected source of infection? No. Patient's initial sepsis screen is negative. Onset of symptoms was January 27, 2020. 19:12 Method Of Arrival: Ambulatory ss 19:12 Acuity: DOMONIQUE 3 ss 20:00 Initial Sepsis Screen: Does the patient meet any 2 criteria? No. Patient's initial vc sepsis screen is negative. Initial Sepsis Screen: Does the patient have a suspected source of infection? No. Patient's initial sepsis screen is negative. Risk Assessment: Do you want to hurt yourself or someone else? Patient reports no desire to harm self or others. Triage Assessment: 19:15 General: Appears in no apparent distress. uncomfortable, Behavior is cooperative, vc appropriate for age. Pain: Complains of pain in abdomen Pain does not radiate. Pain currently is 9 out of 10 on a pain scale. GI: Reports lower abdominal pain, upper abdominal pain, cramping, nausea, vomiting. Historical: - Allergies: 19:15 mosquitoes; ss - Home Meds: 19:15 Albuterol Inhl [Active]; vc - PMHx: 19:15 Asthma; ss - Immunization history:: Adult Immunizations up to date. - Social history:: Smoking status: Patient reports the use of cigarette tobacco products, smokes one pack cigarettes per day. Screenin:15 Abuse screen: Denies threats or abuse. Nutritional screening: No deficits noted. vc Tuberculosis screening: No symptoms or risk factors identified. Fall Risk None identified. Assessment: 19:15 GI: Abdomen is non-distended. vc 19:15 General: Appears in no apparent distress. vc 19:15 General: Behavior is calm, cooperative, appropriate for age. Pain: Complains of pain in vc abdomen Pain does not radiate. Pain currently is 9 out of 10 on a pain scale. Quality of pain is described as crampy, stabbing. Neuro: Level of Consciousness is awake, obeys commands, lethargic. Cardiovascular: Capillary refill < 3 seconds Patient's skin is warm and dry. Edema. Respiratory: Airway is patent Respiratory effort is even, unlabored, Respiratory pattern is regular, symmetrical. : Reports inability to void, since the am. Derm: Skin is intact, Skin is dry, Skin temperature is warm. 20:15 Reassessment: Patient and/or family updated on plan of care and expected duration. Pain vc level reassessed. Patient states the cramping has improved but he has a headache. Provider notified. 21:15 Reassessment: Patient and/or family updated on plan of care and expected duration. Pain vc level reassessed. Patient states feeling better. Patient states symptoms have improved. 22:00 Reassessment: Please see [facility] for further charting. vc 22:00 Reassessment: Patient states he feels much better, still unable to urinate, care handed vc over to DONNY Lopez. Vital Signs: 19:12 BP 106 / 74; Pulse 90; Resp 18; Temp 97.8; Pulse Ox 99% on R/A; Pain 10/10; ss 21:00 BP 126 / 68; Pulse 96; Resp 18; Pulse Ox 100% on R/A; vc ED Course: 18:42 Patient arrived in ED. mr 19:12 Triage completed. ss 19:15 [facility]C [facility] kb 19:15 Juan Driver MD is Attending Physician. kb 19:15 Arm band placed on left wrist. ss 19:15 Patient has correct armband on for positive identification. Bed in low position. Call vc light in reach. Side rails up X2. Pulse ox on. NIBP on. 19:24 Roxann Odonnell RN is Primary Nurse. vc 19:30 Inserted saline lock: 20 gauge in right antecubital area, using aseptic technique. vc Blood collected. 20:50 Lloyd Robbins MD is Hospitalizing Provider. kb 22:00 No provider procedures requiring assistance completed. Patient admitted, IV remains in vc place. Administered Medications: 19:40 Drug: NS 0.9% 1000 ml Route: IV; Rate: 1000 ml; Site: right antecubital; vc 20:40 Follow up: IV Status: Completed infusion; IV Intake: 1000ml vc 19:40 Drug: Zofran (Ondansetron) 4 mg Route: IVP; Site: right antecubital; vc 21:30 Follow up: Response: No adverse reaction; Nausea is decreased vc 20:53 Drug: NS 0.9% 1000 ml Route: IV; Rate: 1000 ml; Site: right antecubital; vc 22:00 Follow up: IV Status: Completed infusion; IV Intake: 1000ml vc Intake: 20:40 IV: 1000ml; Total: 1000ml. vc 22:00 IV: 1000ml; Total: 2000ml. vc Outcome: 20:50 Decision to Hospitalize by Provider. kb 22:00 Admitted to ER Hold. Please see [facility] for further documentation. vc 22:00 Condition: good 22:00 Instructed on the need for admit. 01/27 03:14 Patient left the ED. bb Signatures: Kiah Ahn, DEVELOPMENT TEAM LEAD-C DEVELOPMENT TEAM LEAD-Keira Baig mr DíazAimee RN RN bb Gabriela Stephens, Roxann Stout RN, RN RN vc
[2020-01-27] MEDS ORDERED: ACETAMINOPHEN 500 MG TAB ONE (20:59)
--- NOTE | 2020-01-27 22:03 | P.HP ---
Certification for Inpatient Patient admitted to: Observation With expected LOS: <2 Midnights Patient will require the following post-hospital care: None Practitioner: I am a practitioner with admitting privileges, knowledge of patient current condition, hospital course, and medical plan of care. Services: Services provided to patient in accordance with Admission requirements found in Title 42 Section 412.3 of the Code of Federal Regulations Patient History Date of Service: 01/27/20 Reason for admission: Acute kidney injury/dehydration History of Present Illness: 29-year-old male with a past medical history of asthma, half a pack a day smoker and cannabis use presents to the emergency room complaining of nausea and vomiting. Patient states he worked outdoors all day in the heat index of 109 with minimal hydration. States when he got home he felt nauseous and started vomiting. He was also having lower extremity cramping. Was encouraged to come to the ER. In the ER patient's creatinine levels are noted to be elevated at 4.08. His nausea and vomiting have improved with Zofran. His hemoglobin is 18 hematocrit 54, potassium of 5.1 and is CK is 357 consistent with severe dehydration. Patient was started on IV fluids and feels better. On physical exam patient is alert and oriented x4. He is pleasant and cooperative and in no distress. Like cramping has resolved and his nausea and vomiting are mostly resolved. Has received 2 units of IV fluid. Patient will be placed in observation and further evaluated. Allergies Mos Allergy (Uncoded 06/15/17 23:06) Unknown Home medications list reviewed: Yes (Albuterol inhaler/nebulizer) - Past Medical/Surgical History Has patient received pneumonia vaccine in the past: No Diabetic: No -: Asthma -: None Psychosocial/ Personal History: Lives at home with girlfriend - Social History Smoking Status: Heavy Tobacco smoker (>10 cigarettes/day) Alcohol use: Yes CD- Drugs: Yes Caffeine use: No Place of Residence: Home Review of Systems General: As per HPI Eyes: Unremarkable ENT: Unremarkable Respiratory: Unremarkable Cardiovascular: Unremarkable Gastrointestinal: Nausea, Vomiting, As per HPI Genitourinary: Retention Musculoskeletal: Other (Lower extremity cramping), As per HPI Integumentary: Unremarkable Neurological: Unremarkable Lymphatics: Unremarkable Physical Examination - Vital Signs Temperature: 97.8 F Blood Pressure: 106/74 Pulse: 90 Respirations: 18 Pulse Ox (%): 99 (RA) - Physical Exam General: Alert, In no apparent distress, Oriented x3 HEENT: Atraumatic, Normocephalic, PERRLA Neck: Supple, Other (Trachea midline) Respiratory: Clear to auscultation bilaterally, Normal air movement Cardiovascular: No edema, Normal pulses, Regular rate/rhythm, Normal S1 S2 Capillary refill: <2 Seconds Gastrointestinal: Normal bowel sounds, Soft and benign, Non-distended Musculoskeletal: No clubbing, No swelling, No contractures, No erythema Integumentary: No rashes, No breakdown, No significant lesion, No tenderness/swelling Neurological: Normal gait, Normal speech, Normal strength at 5/5 x4 extr, Normal tone - Studies Laboratory Data (last 24 hrs) 01/27/20 19:38: Sodium 133 L, Potassium 5.1, BUN 27 H, Creatinine 4.08 H, Glucose 118 H 01/27/20 19:38: WBC 8.6, Hgb 18.6 H, Hct 54.3 H, Plt Count 272 Assessment and Plan - Plan Impression: Acute kidney injury likely secondary to severe dehydration: Rhabdomyolysis: Nausea and vomiting: Asthma: Plan: Acute kidney injury likely secondary to severe dehydration: Patient noted to be working outdoors in the heat index of 109 with poor hydration. His lab work shows hemoconcentration of hemoglobin hematocrit and potassium with elevated CK of 357. Will continue aggressive IV hydration. Rhabdomyolysis: Likely resulting from severe dehydration. CK level 0357 on admission. Continue as above. Will recheck CK in the morning. Nausea and vomiting: Improved with IV Zofran. Will order IV Zofran p.r.n. Asthma: Patient has a history of chronic asthma. Takes albuterol inhaler or nebulizer p.r.n. at home. Will order p.r.n. breathing treatments. Discharge Plan: Home Plan to discharge in: 48 Hours - Advance Directives Does patient have a Living Will: No Does patient have a Durable POA for Healthcare: No - Code Status/Comfort Care Code Status Assessed: Yes Time Spent Managing Pts Care (In Minutes): 55
[2020-01-27] MEDS ORDERED: IPRATROPIUM BROM 0.5MG/2.5ML NEB PRN (22:20)
[2020-01-27] MEDS: NA CHLORIDE 0.9% 1,000 ML IV SCH (22:20)
[2020-01-27] MEDS ORDERED: ONDANSETRON 4 MG/2 ML VIAL IV PRN (22:20)
[2020-01-27] MEDS ORDERED: ENOXAPARIN 30 MG/0.3 ML SQ SCH (23:00)
[2020-01-27] MEDS ORDERED: ENOXAPARIN 30 MG/0.3 ML SQ ONE (23:51)
[2020-01-28 03:29] VITALS: BMI 27.1
[2020-01-28] MEDS ORDERED: IPRATROPIUM BROM 0.5MG/2.5ML ONE (03:46)
[2020-01-28 04:23] LABS: Urine Appearance CLEAR; Urine Bilirubin NEGATIVE (NEG); Urine Blood NEGATIVE (NEG); Urine Color YELLOW; Urine Glucose NEGATIVE (NEG); Urine Protein TRACE (NEG); Urine Specific Gravity 1.015 (1.005-1.030); Urine Urobilinogen 0.2 mg/dL (0.2-1.0); Urine pH 5.5 (5.0-7.0)
[2020-01-28 04:24] LABS: Urine Microscopic Reflex NO UMIC
[2020-01-28] MEDS: NA CHLORIDE 0.9% 1,000 ML IV SCH (05:21)
[2020-01-28 05:37] VITALS: O2SAT 99
--- NOTE | 2020-01-28 05:46 | EKG ---
Test Date: 2020-01-27 Test Time: 19:36:04 Baton Twirler: ALFREDO MEASUREMENT RESULTS: Intervals: Rate: 75 WY: 142 QRSD: 90 QT: 366 QTc: 408 Wendel: P: 64 WY: 142 QRS: 78 T: 68 INTERPRETIVE STATEMENTS: Normal sinus rhythm Early repolarization Normal ECG Compared to ECG 07/22/2018 01:32:58 Early repolarization now present Myocardial infarct finding no longer present Electronically Signed On 01-28-20 05:45:10 CDT by Serafin Lainez
[2020-01-28 06:58] LABS: Absolute Lymphocytes (CBC) 1.6 K/uL (0.7-4.9); Basophils % 0.5 % (0-1.3); Hematocrit 41.9 % (39.6-49.0); MPV 8.1 fL (7.6-11.3); RBC Red Blood Cell Count 4.64 M/uL (4.33-5.43)
[2020-01-28 07:17] LABS: Magnesium 2.5 mg/dL (1.8-2.4)
[2020-01-28 08:23] VITALS: BP 117/66; TEMP 98.9
--- NOTE | 2020-01-28 09:36 | P.DS ---
Admission Date: 01/28/20 Discharge Date: 01/28/20 Disposition: ROUTINE DISCHARGE Discharge Condition: GOOD Reason for Admission: Acute kidney injury/dehydration Brief History of Present Illness: 29-year-old male with a past medical history of asthma, half a pack a day smoker and cannabis use presents to the emergency room complaining of nausea and vomiting. Patient states he worked outdoors all day in the heat ind ex of 109 with minimal hydration. States when he got home he felt nauseous and started vomiting. He was also having lower extremity cramping. In the ER patient's creatinine levels are noted to be elevated at 4.08. His nausea and vomiting have improved with Zofran. His hemoglobin is 18 hematocrit 54, potassium of 5.1 and is CK is 357 consistent with severe dehydration. Patient was started on IV fluids and feels better. On physical exam patient is alert and oriented x4. He is pleasant and cooperative and in no distress. Like cramping has resolved and his nausea and vomiting are mostly resolved. Has received 2 units of IV fluid. Patient will be placed in observation and further evaluated. Hospital Course: He was admitted and was started on IV hydration. Renal parameters were monitored and was trending down. Discussed about the disease condition and the need to take lots of oral fluids. Renal parameters are improving and he wants to go home and is follows up an outpatient with PCP He is being discharged home today in a stable condition with advice to follow up with PCP in 1 week time Vital Signs/Physical Exam: Temp Pulse Resp BP Pulse Ox 98.9 F 54 16 117/66 98 01/28/20 08:00 01/28/20 08:00 01/28/20 08:00 01/28/20 08:00 01/28/20 08:00 General: Alert, In no apparent distress HEENT: Atraumatic, Normocephalic Neck: Supple Respiratory: Clear to auscultation bilaterally, Normal air movement Cardiovascular: Regular rate/rhythm, Normal S1 S2 Capillary refill: <2 Seconds Gastrointestinal: Soft and benign, W/out hepatosplenomegaly Musculoskeletal: No clubbing, No swelling Integumentary: No rashes Neurological: Normal speech, Normal strength at 5/5 x4 extr Lymphatics: No axilla or inguinal lymphadenopathy Laboratory Data at Discharge: WBC 6.8 K/uL (4.3-10.9) D 01/28/20 06:41 Hgb 14.3 g/dL (13.6-17.9) D 01/28/20 06:41 Hct 41.9 % (39.6-49.0) D 01/28/20 06:41 Plt Count 189 K/uL (152-406) D 01/28/20 06:41 Sodium 139 mmol/L (136-145) 01/28/20 06:41 Potassium 4.0 mmol/L (3.5-5.1) 01/28/20 06:41 BUN 21 mg/dL (7-18) H 01/28/20 06:41 Creatinine 1.74 mg/dL (0.55-1.3) H D 01/28/20 06:41 Glucose 97 mg/dL (74-106) 01/28/20 06:41 Magnesium 2.5 mg/dL (1.8-2.4) H D 01/28/20 06:41 Home Medications: Albuterol Neb [Proventil 0.083% Neb Soln] 1 inh IN BEDTIME PRN PRN 01/27/20 Diet: Regular Time spent managing pt's care (in minutes): 42
[2020-01-28] MEDS ORDERED: ENOXAPARIN 40 MG/0.4 ML SQ SCH (23:00)
== END 2020-01-28 10:00 | disposition home or self-care (01) | DRG 683 ==
LOC: ER 18:41 → ERHOLD 21:02 → 4TH 01-28 03:47 → OBSVTOIN 01-28 08:03
PROVIDERS: ADMIT Emergency Medicine; ATTEND Family Medicine
DX: N17.9 Acute kidney failure, unspecified (principal); M62.82 Rhabdomyolysis; E86.0 Dehydration; J45.909 Unspecified asthma, uncomplicated; F17.210 Nicotine dependence, cigarettes, uncomplicated; Z11.59 Encounter for screening for other viral diseases
CPT/HCPCS: 36415; 80048; 81003; 82550; 83735; 85025; 93005; 94640; 96361; 96374; 99285; G0378; J1650; J2405; J7030; U0003

== ENCOUNTER 2021-05-21 09:21 | Emergency (ER) | payer SELFPAY ==
[2021-05-21] MEDS ORDERED: NA CHLORIDE 0.9% 1,000 ML ONE (09:46)
[2021-05-21 09:50] LABS: Absolute Lymphocytes (CBC) 1.4 K/uL (0.7-4.9); Basophils % 0.6 % (0-1.3); Hematocrit 46.6 % (39.6-49.0); Lymphocytes % 32.1 % (15.3-44.8); MPV 7.8 fL (7.6-11.3); RBC Red Blood Cell Count 5.17 M/uL (4.33-5.43)
[2021-05-21 09:54] LABS: Protime INR 0.92
[2021-05-21 10:12] LABS: ALT/SGPT 55 U/L (12-78); AST/SGOT 27 U/L (15-37); Albumin 3.9 g/dL (3.4-5.0); Alkaline Phosphatase 88 U/L (45-117); BUN Blood Urea Nitrogen 7 mg/dL (7-18); Bicarbonate 25 mmol/L (21-32); Bilirubin Direct 0.1 mg/dL (0-0.2); Bilirubin Total 0.4 mg/dL (0.2-1.0); Glucose Level 119 mg/dL (74-106); Lipase 130 U/L (73-393); NT PRO-BNP 26 pg/mL (<125); Potassium 4.2 mmol/L (3.5-5.1); Protein, Total 8.1 g/dL (6.4-8.2); Sodium Level 139 mmol/L (136-145); Troponin (Emerg Dept Use Only) < 0.02 ng/mL (0.0-0.045)
--- NOTE | 2021-05-21 11:00 | RAD REPORT ---
EXAM DESCRIPTION: CT - Abdomen Pelvis W Contrast - 05/21/2021 10:39 am CLINICAL HISTORY: Abdominal pain COMPARISON: none. TECHNIQUE: Computed axial tomography of the abdomen pelvis was obtained. 100 cc Isovue-300 was admin istered intravenously. Oral contrast was not requested which limits evaluation of bowel. All CT scans are performed using dose optimization technique as appropriate and may include automated exposure control or mA/KV adjustment according to patient size. FINDINGS: The liver, spleen, pancreas, adrenal and kidneys appear unremarkable. There is no evidence of diverticulitis. Normal appendix Tiny umbilical hernia. Short segment mild thickening descending colon IMPRESSION: Short segment mild thickening descending colon. This probably represents spasm. A mild c olitis can also have this appearance and should be correlated clinically. .
--- NOTE | 2021-05-21 11:01 | RAD REPORT ---
EXAM DESCRIPTION: Jc Single View05/21/2021 9:46 am CLINICAL HISTORY: Cough COMPARISON: 2019 FINDINGS: The lungs appear clear of acute infiltrate. The heart is normal size IMPRESSION: No acute abnormalities displayed
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
--- NOTE | 2021-05-21 12:35 | EDPHYS ---
Physician Documentation [facility] Name: Paul Giles Jr Age: 31 yrs Sex: Male : 1990 Arrival Date: 05/21/2021 Time: 09:24 Bed 20 Private MD: YASH Physician Theodore Ferreira HPI: 05/21 12:28 This 31 yrs old Black Male presents to ER via Ambulatory with complaints of Chest Pain, isidro Breathing Difficulty, Dizziness, Bloody Stools. 12:28 This 31 yrs old Black Male presents to ER via Ambulatory with complaints of Chest Pain, isidro Breathing Difficulty, Dizziness, Bloody Stools. 12:28 The patient or guardian reports chest pain that is located primarily in the diaphragm. isidro Historical: - Home Meds: :33 Albuterol Inhl [Active]; ap3 - PMHx: 09:33 Asthma; ap3 - Immunization history:: Client reports having NOT received the Covid vaccine. - Social history:: Smoking status: Patient reports the use of cigarette tobacco products, smokes one-half pack cigarettes per day, Patient uses alcohol, weekly. street drugs, cocaine. - Family history:: not pertinent. ROS: 12:30 Constitutional: Negative for fever, chills, and weight loss, Eyes: Negative for injury, isidro pain, redness, and discharge, ENT: Negative for injury, pain, and discharge, Neck: Negative for injury, pain, and swelling, Cardiovascular: Negative for chest pain, palpitations, and edema, Respiratory: Negative for shortness of breath, cough, wheezing, and pleuritic chest pain, Back: Negative for injury and pain, : Negative for injury, bleeding, discharge, and swelling, MS/Extremity: Negative for injury and deformity, Skin: Negative for injury, rash, and discoloration, Neuro: Negative for headache, weakness, numbness, tingling, and seizure, Psych: Negative for depression, anxiety, suicide ideation, homicidal ideation, and hallucinations, Allergy/Immunology: Negative for hives, rash, and allergies, Endocrine: Negative for neck swelling, polydipsia, polyuria, polyphagia, and marked weight changes, Hematologic/Lymphatic: Negative for swollen nodes, abnormal bleeding, and unusual bruising. 12:30 Abdomen/GI: Positive for abdominal pain, of the left upper quadrant. Exam: 12:30 Constitutional: This is a well developed, well nourished patient who is awake, alert, isidro and in no acute distress. Head/Face: Normocephalic, atraumatic. Eyes: Pupils equal round and reactive to light, extra-ocular motions intact. Lids and lashes normal. Conjunctiva and sclera are non-icteric and not injected. Cornea within normal limits. Periorbital areas with no swelling, redness, or edema. ENT: Nares patent. No nasal discharge, no septal abnormalities noted. Tympanic membranes are normal and external auditory canals are clear. Oropharynx with no redness, swelling, or masses, exudates, or evidence of obstruction, uvula midline. Mucous membranes moist. Neck: Trachea midline, no thyromegaly or masses palpated, and no cervical lymphadenopathy. Supple, full range of motion without nuchal rigidity, or vertebral point tenderness. No Meningismus. Chest/axilla: Normal chest wall appearance and motion. Nontender with no deformity. No lesions are appreciated. Cardiovascular: Regular rate and rhythm with a normal S1 and S2. No gallops, murmurs, or rubs. Normal PMI, no JVD. No pulse deficits. Respiratory: Lungs have equal breath sounds bilaterally, clear to auscultation and percussion. No rales, rhonchi or wheezes noted. No increased work of breathing, no retractions or nasal flaring. Back: No spinal tenderness. No costovertebral tenderness. Full range of motion. Male : Normal genitalia with no discharge or lesions. Skin: Warm, dry with normal turgor. Normal color with no rashes, no lesions, and no evidence of cellulitis. MS/ Extremity: Pulses equal, no cyanosis. Neurovascular intact. Full, normal range of motion. Neuro: Awake and alert, GCS 15, oriented to person, place, time, and situation. Cranial nerves II-XII grossly intact. Motor strength 5/5 in all extremities. Sensory grossly intact. Cerebellar exam normal. Normal gait. Psych: Awake, alert, with orientation to person, place and time. Behavior, mood, and affect are within normal limits. 12:30 Abdomen/GI: Inspection: distension, Bowel sounds: normal, Palpation: mild abdominal tenderness, in the left upper quadrant, Liver: no appreciated palpable abnormalities, Hernia: not appreciated. 12:37 ECG was reviewed by the Attending Physician. [facility] Vital Signs: 09:31 BP 153 / 103; Pulse 96; Resp 18; Temp 98.9(TE); Pulse Ox 100% ; Weight 102.06 kg; ap3 Height 6 ft. (182.88 cm); 10:22 BP 133 / 88; Pulse 84; Resp 18; Pulse Ox 99% on R/A; wagner 11:22 BP 125 / 92; Pulse 68; Resp 18; Pulse Ox 97% on R/A; wagner 12:09 BP 134 / 89; Pulse 66; Resp 18; Pulse Ox 99% on R/A; wagner 09:31 Body Mass Index 30.52 (102.06 kg, 182.88 cm) ap3 MDM: 09:27 Patient medically screened. [facility] 12:31 Differential diagnosis: abnormal EKG, anxiety, chest wall pain, Cholelithiasis isidro diverticulitis, hiatal hernia, pancreatitis, peptic ulcer disease, pneumonia, unstable angina, diverticulitis, gastritis, Irritable bowel syndrome, non-specific abd pain, pancreatitis, Prostatitis, Pyelonephritis, urinary tract infection. HEART Score: History: Slightly Suspicious (0), ECG: Normal (0), Age: < or = 45 years (0), Risk Factors: No Risk Factors Known (0), Troponin: < or = 1 x Normal Limit (0). The patient's deep vein thrombosis risk score was calculated as follows: Total Score: 0. This patient was found to be at low risk for a deep vein thrombosis by using the Well's assessment criteria. The patient's pulmonary embolism risk score was calculated as follows: Total Score: 0-2 points. This patient was found to be at low risk for a pulmonary embolism by using the Well's assessment criteria. LISSETTE Risk Score: TOTAL SCORE = 0. Data reviewed: vital signs, nurses notes, lab test result(s), EKG, radiologic studies, CT scan, plain films. Data interpreted: case monitor: rate is 66 beats/min, rhythm is regular, Pulse oximetry: on room air is 99 %. Test interpretation: by ED physician or midlevel provider: ECG, plain radiologic studies. Counseling: I had a detailed discussion with the patient and/or guardian regarding: the historical points, exam findings, and any diagnostic results supporting the discharge/admit diagnosis, lab results, radiology results, the need for outpatient follow up. 05/21 09:30 Order name: Basic Metabolic Panel; Complete Time: 12:00 [facility] 05/21 09:30 Order name: CBC with Diff; Complete Time: 12:00 [facility] 05/21 09:30 Order name: LFT's; Complete Time: 12:00 [facility] 05/21 09:30 Order name: Magnesium; Complete Time: 12:00 [facility] 05/21 09:30 Order name: NT PRO-BNP; Complete Time: 12:00 [facility] 05/21 09:30 Order name: PT-INR; Complete Time: 12:00 [facility] 05/21 09:30 Order name: Troponin (emerg Dept Use Only); Complete Time: 12:00 [facility] 05/21 09:30 Order name: XRAY Chest (1 view); Complete Time: 12:00 [facility] 05/21 09:30 Order name: Lipase; Complete Time: 12:00 [facility] 05/21 09:30 Order name: SARS-COV-2 RT PCR (Document "Date of Onset" if Symptomatic); Complete Time: [facility] 12:00 05/21 09:30 Order name: CT Abd/Pelvis - IV Contrast Only; Complete Time: 12:00 [facility] 05/21 09:30 Order name: EKG; Complete Time: 09:31 [facility] 05/21 09:30 Order name: Cardiac monitoring; Complete Time: 09:35 [facility] 05/21 09:30 Order name: EKG - Nurse/Tech; Complete Time: 09:35 [facility] 05/21 09:30 Order name: IV Saline Lock; Complete Time: 09:35 [facility] 05/21 09:30 Order name: Labs collected and sent; Complete Time: 09:40 [facility] 05/21 09:30 Order name: O2 Sat Monitoring; Complete Time: 09:35 [facility] 05/21 09:30 Order name: Urine Dipstick-Ancillary (obtain specimen); Complete Time: 11:35 [facility] EC:37 Rate is 84 beats/min. Rhythm is regular. QRS Foreman is Normal. UT interval is normal. QRS isidro interval is normal. QT interval is normal. No Q waves. T waves are Normal. No ST changes noted. Clinical impression: Normal ECG and No evidence of ischemia. Interpreted by me. Reviewed by me. Administered Medications: 09:57 Drug: NS 0.9% 1000 ml Route: IV; Rate: 1 bolus; Site: right antecubital; jg9 11:30 Follow up: IV Status: Completed infusion; IV Intake: 1000ml jg9 12:46 Drug: Zofran (Ondansetron) 4 mg Route: IVP; Site: right antecubital; wagner 12:49 Follow up: Response: No adverse reaction wagner 12:46 Drug: ProTONIX (pantoprazole) 40 mg Route: PO; wagner 12:49 Follow up: Response: No adverse reaction wagner 12:49 Drug: Cipro (ciprofloxacin) 500 mg Route: PO; wagner 12:50 Follow up: Response: No adverse reaction wagner 12:49 Drug: Flagyl (metroNIDAZOLE) 500 mg Route: PO; wagner 12:49 Follow up: Response: No adverse reaction wagner 12:49 Drug: morphine 4 mg Route: IVP; Site: right antecubital; wagner 12:49 Follow up: Response: No adverse reaction wagner Disposition Summary: 05/21/21 12:34 Discharge Ordered Location: Home isidro Problem: new isidro Symptoms: have improved isidro Condition: Stable isidro Diagnosis - Abdominal pain, Generalized isidro - Gastritis, unspecified isidro - Left sided colitis isidro Followup: isidro - With: Private Physician - When: 2 - 3 days - Reason: Recheck today's complaints, Continuance of care, Re-evaluation by your physician Followup: isidro - With: Shante Montilla MD - When: 2 - 3 days - Reason: Recheck today's complaints, Re-evaluation by your physician Discharge Instructions: - Discharge Summary Sheet isidro - Abdominal Pain, Adult isidro - Gastritis, Adult isidro - Abdominal Pain, Adult, [id number] isidro - Colitis isidro Forms: - Medication Reconciliation Form isidro - Thank You Letter isidro - Antibiotic Education isidro - Prescription Opioid Use [facility] Prescriptions: - Flagyl 500 mg Oral Tablet - take 1 tablet by ORAL route every 8 hours for 10 days; 30 tablet; Refills: 0, [facility] Product Selection Permitted - Protonix 40 mg Oral Tablet - take 1 tablet by ORAL route once daily; 30 tablet; Refills: 0, Product [facility] Selection Permitted - Cipro 500 mg Oral Tablet - take 1 tablet by ORAL route every 12 hours for 10 days; 20 tablet; Refills: 0, [facility] Product Selection Permitted - dicyclomine 20 mg Oral Tablet - take 1 tablet by ORAL route 4 times per day; 40 tablet; Refills: 0, Product [facility] Selection Permitted Signatures: Dispatcher [employer] Theodore Valladares MD MD cha Prokisch, Amanda, RN RN ap3 Uyen Ca jg9 Kassidy Esposito
[2021-05-21] MEDS ORDERED: PANTOPRAZOLE 40MG TABLET PO ONE (12:36)
[2021-05-21] MEDS ORDERED: CIPROFLOXACIN HCL 500 MG TAB ONE (12:36)
[2021-05-21] MEDS ORDERED: metroNIDAZOLE 500 MG TABLET ONE (12:36)
[2021-05-21] MEDS ORDERED: ONDANSETRON 4 MG/2 ML VIAL ONE (12:37)
[2021-05-21] MEDS ORDERED: MORPHINE 4 MG/ML SYR ONE (12:37)
[2021-05-21 13:39] VITALS: TEMP 98.9
[2021-05-21 13:43] VITALS: BP 134/89; O2SAT 99
== END 2021-05-21 13:26 | disposition home or self-care (01) ==
LOC: ER 09:21
DX: K29.70 Gastritis, unspecified, without bleeding (principal); K51.50 Left sided colitis without complications; F17.210 Nicotine dependence, cigarettes, uncomplicated
CPT/HCPCS: 36415; 71045; 74177; 80048; 80076; 83690; 83735; 83880; 84484; 85025; 85610; 93005; J2405; J7030; Q9967; U0003

== ENCOUNTER 2022-02-24 12:26 | Emergency (ER) | payer SELFPAY ==
--- NOTE | 2022-02-24 12:35 | EDPHYS ---
Physician Documentation [facility] Name: Paul Giles Jr Age: 31 yrs Sex: Male : 1990 Arrival Date: 02/24/2022 Time: 12:31 Bed DIS3 Private MD: ED Physician Gerald Flores HPI: 02/24 17:36 This 31 yrs old Black Male presents to ER via [employer] with complaints of right snw knee pain/swelling. 17:36 The patient presents with an injury, pain, that is acute. The complaints affect the snw posterior aspect of right knee and right knee. Context: The problem was sustained outdoors, resulted from a mis-step, into a hole, the patient can partially bear weight, the patient is able to ambulate, Problem is a result from a previous injury: pt was a semi pro football player. Onset: The symptoms/episode began/occurred suddenly, yesterday. Associated signs and symptoms: Pertinent positives: swelling. Severity of symptoms: At their worst the symptoms were moderate, severe. The patient has experienced similar episodes in the past, multiple times. It is unknown whether or not the patient has recently seen a physician. Historical: - Allergies: 12:52 No Known Allergies; ph - Home Meds: 12:52 Albuterol Inhl [Active]; ph - PMHx: 12:52 Asthma; ph - Immunization history:: Adult Immunizations unknown. - Social history:: Smoking status: unknown. ROS: 17:36 Constitutional: Negative for fever, chills, and weight loss, Eyes: Negative for injury, snw pain, redness, and discharge, ENT: Negative for injury, pain, and discharge, Neck: Negative for injury, pain, and swelling, Cardiovascular: Negative for chest pain, palpitations, and edema, Respiratory: Negative for shortness of breath, cough, wheezing, and pleuritic chest pain, Abdomen/GI: Negative for abdominal pain, nausea, vomiting, diarrhea, and constipation, Back: Negative for injury and pain, : Negative for injury, bleeding, discharge, and swelling, Skin: Negative for injury, rash, and discoloration, Neuro: Negative for headache, weakness, numbness, tingling, and seizure, Psych: Negative for depression, anxiety, suicide ideation, homicidal ideation, and hallucinations. 17:36 MS/extremity: Positive for injury or acute deformity, pain, swelling, of the right knee. Exam: 12:33 Constitutional: This is a well developed, well nourished patient who is awake, alert, snw and in no acute distress. Head/Face: Normocephalic, atraumatic. Eyes: Pupils equal round and reactive to light, extra-ocular motions intact. Lids and lashes normal. Conjunctiva and sclera are non-icteric and not injected. Cornea within normal limits. Periorbital areas with no swelling, redness, or edema. ENT: Nares patent. No nasal discharge, no septal abnormalities noted. Tympanic membranes are normal and external auditory canals are clear. Oropharynx with no redness, swelling, or masses, exudates, or evidence of obstruction, uvula midline. Mucous membranes moist. Neck: Trachea midline, no thyromegaly or masses palpated, and no cervical lymphadenopathy. Supple, full range of motion without nuchal rigidity, or vertebral point tenderness. No Meningismus. Chest/axilla: Normal chest wall appearance and motion. Nontender with no deformity. No lesions are appreciated. Cardiovascular: Regular rate and rhythm with a normal S1 and S2. No gallops, murmurs, or rubs. Normal PMI, no JVD. No pulse deficits. Respiratory: Lungs have equal breath sounds bilaterally, clear to auscultation and percussion. No rales, rhonchi or wheezes noted. No increased work of breathing, no retractions or nasal flaring. Abdomen/GI: Soft, non-tender, with normal bowel sounds. No distension or tympany. No guarding or rebound. No evidence of tenderness throughout. Back: No spinal tenderness. No costovertebral tenderness. Full range of motion. Skin: Warm, dry with normal turgor. Normal color with no rashes, no lesions, and no evidence of cellulitis. Neuro: Awake and alert, GCS 15, oriented to person, place, time, and situation. Cranial nerves II-XII grossly intact. Motor strength 5/5 in all extremities. Sensory grossly intact. Cerebellar exam normal. Normal gait. Psych: Awake, alert, with orientation to person, place and time. Behavior, mood, and affect are within normal limits. 12:33 Musculoskeletal/extremity: Extremities: grossly normal except: noted in the posterior aspect of right knee and right knee: decreased ROM, pain, swelling, tenderness, ROM: limited active range of motion, limited active range of motion due to pain, limited passive range of motion due to pain, in the posterior aspect of right knee and right knee, Circulation is intact in all extremities. Sensation intact. Weight bearing: able to fully bear weight, with limp. Vital Signs: 12:50 BP 157 / 89; Pulse 89; Resp 18; Temp 98.0; Pulse Ox 99% on R/A; ph MDM: 12:35 Patient medically screened. snw 17:39 Data reviewed: vital signs, nurses notes. Data interpreted: Pulse oximetry: on room air snw is 99 %. Interpretation: normal. Response to treatment: There is no appreciated change of the patient's symptoms at this time. Special discussion: Based on the history and exam findings, there is no indication for further emergent testing or inpatient evaluation. I discussed with the patient/guardian the need to see the orthopedic surgeon for further evaluation of the symptoms. 02/24 12:32 Order name: Knee Immobilizer; Complete Time: 12:46 snw Administered Medications: 12:49 Drug: [place] (HYDROcodone-acetaminophen) (7.5 mg-325 mg) 1 tabs Route: PO; ph 12:49 Follow up: Response: No adverse reaction; Medication administered at discharge. ph Disposition: 02/25 08:30 Co-signature as Attending Physician, Gerald GODOY was immediately available on-site ms3 in the Emergency Department for consultation in the care of the patient. . Disposition Summary: 02/24/22 12:35 Discharge Ordered Condition: Stable snw Location: [employer](02/24/22 12:35) snw Diagnosis - Unspecified internal derangement of right knee snw Followup: snw - With: Private Physician - When: 1 week - Reason: Recheck today's complaints, Continuance of care, Re-evaluation by your physician Discharge Instructions: - Discharge Summary Sheet snw - Knee Arthrocentesis snw - Arthroscopic Knee Ligament Repair snw Forms: - Medication Reconciliation Form snw - Thank You Letter snw - Antibiotic Education snw - Prescription Opioid Use snw Signatures: Suyapa Davila FNP-C FNP-Csnw Angela Rivera RN RN ph Gerald Flores DO DO ms3 Corrections: (The following items were deleted from the chart) 02/24 12:35 12:35 Home snw snw
[2022-02-24] MEDS ORDERED: HYDROCODONE/APAP 7.5/325 MG TAB ONE (12:45)
--- NOTE | 2022-02-24 12:57 | ER ---
Nurse's Notes [facility] Name: Paul Giles Jr Age: 31 yrs Sex: Male : 1990 Arrival Date: 02/24/2022 Time: 12:31 Bed DIS3 Private MD: Diagnosis: Unspecified internal derangement of right knee Presentation: 02/24 12:50 Chief complaint: Patient states: " I was running at night and stepped in a hole and ph twisted my R knee" Pt brought in by police. Coronavirus screen: Vaccine status: Patient reports being unvaccinated. Ebola Screen: No symptoms or risks identified at this time. Initial Sepsis Screen: Does the patient meet any 2 criteria? No. Patient's initial sepsis screen is negative. Does the patient have a suspected source of infection? No. Patient's initial sepsis screen is negative. Risk Assessment: Do you want to hurt yourself or someone else? Patient reports no desire to harm self or others. Onset of symptoms was February 24, 2022. 12:50 Method Of Arrival: [employer] ph 12:50 Acuity: DOMONIQUE 4 ph Triage Assessment: 12:55 General: Appears in no apparent distress. comfortable, Behavior is calm, cooperative, ph appropriate for age. Pain: Complains of pain in right knee. Neuro: Level of Consciousness is awake, alert, obeys commands, Oriented to person, place, time, situation. Cardiovascular: Capillary refill < 3 seconds in bilateral fingers. Respiratory: Airway is patent Respiratory effort is even, unlabored, Respiratory pattern is regular, symmetrical. Derm: Skin is intact, is healthy with good turgor, Skin is pink, warm \\T\\ dry. Musculoskeletal: Range of motion: intact in all extremities. Historical: - Allergies: 12:52 No Known Allergies; ph - Home Meds: 12:52 Albuterol Inhl [Active]; ph - PMHx: 12:52 Asthma; ph - Immunization history:: Adult Immunizations unknown. - Social history:: Smoking status: unknown. Screenin:54 Abuse screen: Denies threats or abuse. Denies injuries from another. Nutritional ph screening: No deficits noted. Tuberculosis screening: No symptoms or risk factors identified. Fall Risk None identified. Assessment: 12:56 Reassessment: SEE TRIAGE ASSESSMENT. ph Vital Signs: 12:50 BP 157 / 89; Pulse 89; Resp 18; Temp 98.0; Pulse Ox 99% on R/A; ph ED Course: 12:31 Patient arrived in ED. iw 12:31 Suy[facility] Dav[facility]C [facility] snw 12:31 Gerald Flores DO is Attending Physician. snw 12:45 Angela Rivera, RN is Primary Nurse. ph 12:52 Triage completed. ph 12:54 Arm band placed on Patient placed in a hallway bed. ph 12:55 Patient has correct armband on for positive identification. Call light in reach. ph 12:55 No provider procedures requiring assistance completed. Patient did not have IV access ph during this emergency room visit. Administered Medications: 12:49 Drug: [place] (HYDROcodone-acetaminophen) (7.5 mg-325 mg) 1 tabs Route: PO; ph 12:49 Follow up: Response: No adverse reaction; Medication administered at discharge. ph Medication: 12:54 VIS not applicable for this client. ph Outcome: 12:35 Discharge ordered by MD. snw 12:55 Discharged to [employer] ph 12:55 Condition: good 12:55 Discharge instructions given to patient, police, Instructed on discharge instructions, follow up and referral plans. Demonstrated understanding of instructions, follow-up care. 12:56 Patient left the ED. ph Signatures: Suyapa Davila FNP-C [employer]-Csnw Bhakti Costa, RN RN iw Angela Rivera RN RN ph
[2022-02-26 17:48] VITALS: BP 157/89; TEMP 98; O2SAT 99
== END 2022-02-24 12:56 ==
LOC: ER 12:26
DX: M23.91 Unspecified internal derangement of right knee (principal)
CPT/HCPCS: 99283